=== PATIENT | female | born 1990 | race American Indian/Alaskan Native ===

== ENCOUNTER 2018-07-25 11:56 | Emergency (ER) | payer SELFPAY ==
[2018-07-25 12:41] VITALS: BP 126/92
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
== END 2018-07-25 13:40 | disposition left against medical advice (07) ==
LOC: ED 11:56
DX: Z20.2 Contact with and (suspected) exposure to infections with a predominantly sexual mode of transmission (principal); Z53.21 Procedure and treatment not carried out due to patient leaving prior to being seen by health care provider

== ENCOUNTER 2021-01-31 16:39 | Emergency (ER) | payer SELFPAY ==
[2021-01-31 16:57] VITALS: BP 124/86
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
== END 2021-01-31 23:00 | disposition home or self-care (01) ==
LOC: ED 16:39
DX: M54.9 Dorsalgia, unspecified (principal); M79.10 Myalgia, unspecified site; Z88.0 Allergy status to penicillin; V49.49XA Driver injured in collision with other motor vehicles in traffic accident, initial encounter; Y93.89 Activity, other specified; Y92.488 Other paved roadways as the place of occurrence of the external cause; Y99.8 Other external cause status
CPT/HCPCS: 72070; 99283